=== PATIENT | male | born 1975 | race Caucasian/White ===

== ENCOUNTER 2021-09-06 04:50 | Day surgery (SDC) | payer OTHER ==
[2021-08-29 15:41] VITALS: BMI 36.1
[2021-09-06 09:31] VITALS: TEMP 97.8
[2021-09-06 10:13] VITALS: BP 114/73; PULSE 67
== END 2021-09-06 10:23 | disposition home or self-care (01) ==
LOC: JASU-ENDO 04:50
PROVIDERS: ATTEND Internal Medicine Gastroenterology
PROC: 0DJD8ZZ Inspection of Lower Intestinal Tract, Via Natural or Artificial Opening Endoscopic (ICD-10-PCS; principal; 2021-09-06 09:00)
DX: Z12.11 Encounter for screening for malignant neoplasm of colon (principal); K64.8 Other hemorrhoids; K64.9 Unspecified hemorrhoids; Z83.71 Family history of colonic polyps